=== PATIENT | female | born 1940 | race African-American/Black ===

== ENCOUNTER 2017-06-02 15:24 | Observation (INO) | payer MEDICAID, MEDICARE ==
[~2017-06-02] VITALS: Ht 162.6 cm; Wt 46.7 kg
[~2017-06-02 15:24] MED LIST: NKM; ZOFRAN ODT8 MG ORAL
[2017-06-02 15:41] VITALS: BP 147/75
[2017-06-02] MEDS ORDERED: Sodium Chloride 500ML 500 ML IV ONE (16:04)
[2017-06-02 17:17] LABS: BASOPHILS % (AUTO) 0.5 % (0.0-2.0); EOSINOPHILS % (AUTO) 0.2 % (0.0-3.0); LYMPHOCYTES % (AUTO) 12.9 % (20.0-45.0); MEAN CORPUSCULAR HGB CONC 29.8 G/DL (32.0-36.0); MEAN CORPUSCULAR VOLUME 84 FL (80-99); MEAN PLATELET VOLUME 6.8 FL (6.5-10.1); MONOCYTES % (AUTO) 4.4 % (1.0-10.0); PLATELET COUNT 237 K/UL (150-450); RED BLOOD COUNT 4.83 M/UL (4.20-5.40); RED CELL DISTRIBUTION WIDTH 13.2 % (11.6-14.8); WHITE BLOOD COUNT 11.7 K/UL (4.8-10.8)
[2017-06-02 17:19] LABS: APPEARANCE,URINE CLEAR; KETONES,URINE NEGATIVE (NEGATIVE); LEUKOCYTE ESTERASE ,URINE 2+ (NEGATIVE); NITRITE,URINE NEGATIVE (NEGATIVE); PH,URINE 6 (4.5-8.0); PROTEIN,URINE 2+ (NEGATIVE); UROBILINOGEN,URINE 1 MG/DL (0.0-1.0)
[2017-06-02 17:25] LABS: BACTERIA,URINE FEW /HPF; SQUAMOUS EPITHELIAL CELL,UR FEW /LPF (NONE/OCC)
[2017-06-02 17:29] LABS: ANION GAP 10 mmol/L (5-15); CALCIUM 9.7 MG/DL (8.5-10.1); CARBON DIOXIDE 27 MMOL/L (21-32); CHLORIDE 106 MMOL/L (98-107); CREATININE 0.9 MG/DL (0.55-1.30); POTASSIUM 3.7 MMOL/L (3.5-5.1); SODIUM 143 MMOL/L (136-145)
[2017-06-02 17:46] LABS: ALANINE AMINOTRANSFERASE 16 U/L (12-78); ASPARTATE AMINO TRANSFERASE 19 U/L (15-37); CKMB < 0.5 NG/ML (0.0-3.6)
[2017-06-02] MEDS ORDERED: Miralax 17gm pkt ORAL PRN (18:00)
--- NOTE | 2017-06-02 18:04 | History and Physical ---
History of Present Illness General Date patient seen: Jun 02, 2017 Time patient seen: 18:04 Reason for Hospitalization: Syncope Present Illness HPI 77/yo female with pmh of breast cancer s/p resection, chemo and XRT (currently in remission per family) who presents with syncope. Per daughter who witnessed episode, pt was sitting on toilet and attempting to have BM when she passed out. She was constipated and straining somewhat. No chest pain, SOB, dizziness, nausea prior to or after incident. Had subsequently 2 BMs. Mild lower abd discomfort. Had syncopal episode abt 1 year ago somewhat similar w/ unremarkable workup at the time. Pt states had "fainting spells" as a child. Denies recent travel, sick contacts or trauma. In ED, CT head neg for acute abnormality. Pt given IVFs. Allergies: Coded Allergies: PENICILLINS (Verified Allergy, Severe, 06/23/15) AMOXICILLIN (Verified Allergy, Unknown, 05/21/12) Medication History Scheduled No Known Medications* (NKM - No Known Medications*), 0 ., (Reported) Scheduled PRN Ondansetron Odt* (Zofran Odt*), 8 MG ORAL Q6H PRN for Nausea & Vomiting Patient History History Provided By: Patient, Family Member, Medical Record Healthcare decision maker Resuscitation status Advanced Directive on File Past Medical/Surgical History Past Medical/Surgical History: (1) Breast cancer s/p surgerical resection s/p chemo and XRT Social History Social History: (1) Lives with family Review of Systems Constitutional: Reports: weakness Eye: Reports: no symptoms ENT: Reports: no symptoms Respiratory: Reports: no symptoms Cardiovascular: Reports: no symptoms Gastrointestinal: Reports: abdominal pain, constipation Genitourinary: Reports: no symptoms Musculoskeletal: Reports: no symptoms Skin: Reports: no symptoms Psychiatric: Reports: no symptoms Neurological: Reports: syncope Endocrine: Reports: no symptoms Hematologic/Lymphatic: Reports: no symptoms Physical Exam Physical Exam Narrative General: alert, cooperative, no distress, appears stated age Head: normocephalic, without obvious abnormality, atraumatic Eyes: conjunctivae/corneas clear. PERRL, EOM's intact Throat: lips, mucosa, and tongue normal. MMM Neck: supple, symmetrical, trachea midline, and no JVD Lungs: clear to auscultation bilaterally Heart: regular rate and rhythm, S1, S2 normal, no murmur, click, rub or gallop Abdomen: soft, non-tender, non-distended, bowel sounds normal; no masses or organomegaly Extremities: extremities normal, atraumatic, no cyanosis or edema Pulses: 2+ and symmetric Skin: skin color, texture, turgor normal; no rashes or lesions Neurologic: grossly normal, no focal deficits Last 24 Hour Vital Signs Date Time Temp Pulse Resp B/P (MAP) Pulse Ox O2 Delivery O2 Flow Rate FiO2 06/02/17 15:41 98.8 59 14 147/75 100 Room Air 06/02/17 15:18 98.1 58 20 156/78 98 Room Air Intake and Output 06/02/17 06/03/17 19:00 07:00 Intake Total 0 ml Balance 0 ml Intake Oral 0 ml Laboratory Tests Test 06/02/17 16:40 06/02/17 17:00 White Blood Count 11.7 K/UL (4.8-10.8) H Red Blood Count 4.83 M/UL (4.20-5.40) Hemoglobin 12.1 G/DL (12.0-16.0) Hematocrit 40.5 % (37.0-47.0) Mean Corpuscular Volume 84 FL (80-99) Mean Corpuscular Hemoglobin 25.0 PG (27.0-31.0) L Mean Corpuscular Hemoglobin Concent 29.8 G/DL (32.0-36.0) L Red Cell Distribution Width 13.2 % (11.6-14.8) Platelet Count 237 K/UL (150-450) Mean Platelet Volume 6.8 FL (6.5-10.1) Neutrophils (%) (Auto) 82.0 % (45.0-75.0) H Lymphocytes (%) (Auto) 12.9 % (20.0-45.0) L Monocytes (%) (Auto) 4.4 % (1.0-10.0) Eosinophils (%) (Auto) 0.2 % (0.0-3.0) Basophils (%) (Auto) 0.5 % (0.0-2.0) Sodium Level 143 MMOL/L (136-145) Potassium Level 3.7 MMOL/L (3.5-5.1) Chloride Level 106 MMOL/L (98-107) Carbon Dioxide Level 27 MMOL/L (21-32) Anion Gap 10 mmol/L (5-15) Blood Urea Nitrogen 11 mg/dL (7-18) Creatinine 0.9 MG/DL (0.55-1.30) Estimat Glomerular Filtration Rate mL/min (>60) Glucose Level 99 MG/DL (74-106) Calcium Level 9.7 MG/DL (8.5-10.1) Total Bilirubin 0.9 MG/DL (0.2-1.0) Aspartate Amino Transf (AST/SGOT) 19 U/L (15-37) Alanine Aminotransferase (ALT/SGPT) 16 U/L (12-78) Alkaline Phosphatase 81 U/L (46-116) Total Creatine Kinase 95 U/L (26-308) Creatine Kinase MB < 0.5 NG/ML (0.0-3.6) Creatine Kinase MB Relative Index 0.5 Troponin I 0.008 ng/mL (0.000-0.056) Pro-B-Type Natriuretic Peptide 189 pg/mL (0-125) H Total Protein 8.0 G/DL (6.4-8.2) Albumin 4.0 G/DL (3.4-5.0) Globulin 4.0 g/dL Albumin/Globulin Ratio 1.0 (1.0-2.7) Urine Color Yellow Urine Appearance Clear Urine pH 6 (4.5-8.0) Urine Specific [place] 1.020 (1.005-1.035) Urine Protein 2+ (NEGATIVE) H Urine Glucose (UA) Negative (NEGATIVE) Urine Ketones Negative (NEGATIVE) Urine Occult Blood 4+ (NEGATIVE) H Urine Nitrite Negative (NEGATIVE) Urine Bilirubin Negative (NEGATIVE) Urine Urobilinogen 1 MG/DL (0.0-1.0) H Urine Leukocyte Esterase 2+ (NEGATIVE) H Urine RBC 5-10 /HPF (0 - 2) H Urine WBC 2-4 /HPF (0 - 2) Urine Squamous Epithelial Cells Few /LPF (NONE/OCC) Urine Bacteria Few /HPF (NONE) Height (Feet): 5 Height (Inches): 8.00 Weight (Pounds): 155 Medications Current Medications Medications (Trade) Dose Ordered Sig/Ashlee Route PRN Reason Start Time Stop Time Status Last Admin Dose Admin Acetaminophen (Tylenol) 650 mg Q4H PRN ORAL Mild Pain (Pain Scale 1-3) 06/02/17 18:00 07/02/17 17:59 UNV Dextrose (Dextrose 50%) STAT PRN IV Hypoglycemia 06/02/17 18:00 07/02/17 17:59 UNV Docusate Sodium (Colace) 100 mg EVERY 12 HOURS ORAL 06/02/17 21:00 07/02/17 20:59 UNV Heparin Sodium (Porcine) (Heparin 5000 units/ml) 5,000 units EVERY 12 HOURS SUBQ 06/02/17 21:00 07/02/17 20:59 UNV Ondansetron HCl (Zofran) 4 mg Q6H PRN IVP Nausea & Vomiting 06/02/17 18:00 07/02/17 17:59 UNV Polyethylene Glycol (Miralax) 17 gm DAILYPRN PRN ORAL Constipation 06/02/17 18:00 07/02/17 17:59 UNV Sodium Chloride 1,000 ml @ 75 mls/hr [id number] IV 06/02/17 18:57 07/02/17 18:56 UNV Assessment/Plan Problem List: (1) Syncope ICD Codes: R55 - Syncope and collapse SNOMED: [id number] Qualifiers: Qualified Codes: R55 - Syncope and collapse (2) Breast cancer s/p surgerical resection s/p chemo and XRT Status: stable Assessment/Plan Appears to be vasovagal episode per history Admit to tele CT head neg Trend trop/EKG Check TTE Check Carotid duplex Check orthostatic vitals IVFs Pain control, nausea control, bowel regimen PT eval DVT Prophylaxis: SCD, HSQ Code Status: Full Hospital Classification Declaration: Based on this initial evaluation, and depending on the patient's clinical course, I anticipate that this patient will require hospitalization for 1-2 days for syncope eval and close respiratory/ hemodynamic monitoring. Disposition: Once the patient is stable to leave the hospital, I anticipate the patient will likely be discharged to the following environment: home with HH vs SNF I spent 70 minutes on this patient's case, and 38 minutes were dedicated to counseling and/or care coordination. Discussed with patient/family, nursing staff, SW/CM, ER physician regarding clinical status, treatment course, and disposition planning. Time of note may not reflect time of encounter. Faheem Flor M.D. Jun 02, 2017 18:04
[2017-06-02 18:06] VITALS: BP 161/79
--- NOTE | 2017-06-02 18:32 | Emergency Room Report ---
History of Present Illness General Chief Complaint: Syncope Source: Patient, Family Member, Medical Record Present Illness HPI 77-year-old female presents ED status post syncopal episode. Patient says she syncopized while on the toilet today. Upon arrival patient states she does not remember what happened. States she feels confused. Denies any headache. Denies any blurry vision nausea or vomiting. Denies chest pain shortness of breath. No other aggravating relieving factors. Denies any other associated symptoms Allergies: Coded Allergies: PENICILLINS (Verified Allergy, Severe, 06/23/15) AMOXICILLIN (Verified Allergy, Unknown, 05/21/12) Patient History Past Medical History: HTN, other - breast cancer Past Surgical History: other - double mastectomy Pertinent Family History: none Social History: Denies: smoking, alcohol use, drug use Now: No Immunizations: UTD Reviewed Nursing Documentation: PMH: Agreed, PSxH: Agreed Nursing Documentation-PMH Past Medical History: No History, Except For Hx Cardiac Problems: Yes Hx Hypertension: Yes Hx Cancer: Yes - DOUBLE mastectomy Hx Neurological Problems: No Review of Systems All Other Systems: negative except mentioned in HPI Physical Exam Vital Signs Date Time Temp Pulse Resp B/P (MAP) Pulse Ox O2 Delivery O2 Flow Rate FiO2 06/02/17 15:18 98.1 58 20 156/78 98 Room Air Sp02 EP Interpretation: reviewed, normal General Appearance: no apparent distress, alert, GCS 15, non-toxic Head: normocephalic, atraumatic Eyes: bilateral eye normal inspection, bilateral eye PERRL ENT: hearing grossly normal, normal pharynx, no angioedema, normal voice Neck: full range of motion, supple/symm/no masses Respiratory: chest non-tender, lungs clear, normal breath sounds, speaking full sentences Cardiovascular #1: regular rate, rhythm, no edema Cardiovascular #2: 2+ carotid (R), 2+ carotid (L), 2+ radial (R), 2+ radial (L) , 2+ dorsalis pedis (R), 2+ dorsalis pedis (L) Gastrointestinal: normal bowel sounds, non tender, soft, non-distended, no guarding, no rebound Rectal: deferred Genitourinary: normal inspection, no CVA tenderness Musculoskeletal: back normal, gait/station normal, normal range of motion, non- tender Neurologic: alert, responsive, motor strength/tone normal, sensory intact, speech normal, other - oriented x2 Psychiatric: judgement/insight normal, mood/affect normal, no suicidal/ homicidal ideation Reflexes: 3+ bicep (R), 3+ bicep (L), 3+ tricep (R), 3+ tricep (L), 3+ knee (R) , 3+ knee (L) Skin: normal color, no rash, warm/dry, well hydrated Lymphatic: no adenopathy Medical Decision Making Diagnostic Impression: Primary Impression: Syncope Qualified Codes: R55 - Syncope and collapse ER Course Hospital Course 77year-old F presents ED s/p syncopal episode. Differential diagnoses include: RI/unstable angina, arrythmia, dehydration, CVA/ TIA Clinical course Patient placed on stretcher. on stock digger. After initial history and physical I ordered labs, EKG, chest x-ray, IVFs, CT Brain labs reviewed- no leukocytosis, hemoglobin/hematocrit ok, electrolytes okay, troponins negative EKG- NSR, no acute ischemic changes interpreted by me Chest x-ray- no acute process CT brain-unremarkable Case discussed with Dr. Farmer and he agreed to accept the patient to his service for further care and support I. I feel this is a highly complex case requiring extensive working including EKG/Rhythm strip, Xray/CT/US, Blood/urine lab work, repeat exams while in ED, and administration of strong opiates/narcotics for pain control, admission to hospital or close patient follow up. Diagnosis - syncope admitted to telemetry in serious condition Labs Test 06/02/17 16:40 06/02/17 17:00 White Blood Count 11.7 K/UL (4.8-10.8) Red Blood Count 4.83 M/UL (4.20-5.40) Hemoglobin 12.1 G/DL (12.0-16.0) Hematocrit 40.5 % (37.0-47.0) Mean Corpuscular Volume 84 FL (80-99) Mean Corpuscular Hemoglobin 25.0 PG (27.0-31.0) Mean Corpuscular Hemoglobin Concent 29.8 G/DL (32.0-36.0) Red Cell Distribution Width 13.2 % (11.6-14.8) Platelet Count 237 K/UL (150-450) Mean Platelet Volume 6.8 FL (6.5-10.1) Neutrophils (%) (Auto) 82.0 % (45.0-75.0) Lymphocytes (%) (Auto) 12.9 % (20.0-45.0) Monocytes (%) (Auto) 4.4 % (1.0-10.0) Eosinophils (%) (Auto) 0.2 % (0.0-3.0) Basophils (%) (Auto) 0.5 % (0.0-2.0) Sodium Level 143 MMOL/L (136-145) Potassium Level 3.7 MMOL/L (3.5-5.1) Chloride Level 106 MMOL/L (98-107) Carbon Dioxide Level 27 MMOL/L (21-32) Anion Gap 10 mmol/L (5-15) Blood Urea Nitrogen 11 mg/dL (7-18) Creatinine 0.9 MG/DL (0.55-1.30) Estimat Glomerular Filtration Rate mL/min (>60) Glucose Level 99 MG/DL (74-106) Calcium Level 9.7 MG/DL (8.5-10.1) Total Bilirubin 0.9 MG/DL (0.2-1.0) Aspartate Amino Transf (AST/SGOT) 19 U/L (15-37) Alanine Aminotransferase (ALT/SGPT) 16 U/L (12-78) Alkaline Phosphatase 81 U/L (46-116) Total Creatine Kinase 95 U/L (26-308) Creatine Kinase MB < 0.5 NG/ML (0.0-3.6) Creatine Kinase MB Relative Index 0.5 Troponin I 0.008 ng/mL (0.000-0.056) Pro-B-Type Natriuretic Peptide 189 pg/mL (0-125) Total Protein 8.0 G/DL (6.4-8.2) Albumin 4.0 G/DL (3.4-5.0) Globulin 4.0 g/dL Albumin/Globulin Ratio 1.0 (1.0-2.7) Urine Color Yellow Urine Appearance Clear Urine pH 6 (4.5-8.0) Urine Specific [place] 1.020 (1.005-1.035) Urine Protein 2+ (NEGATIVE) Urine Glucose (UA) Negative (NEGATIVE) Urine Ketones Negative (NEGATIVE) Urine Occult Blood 4+ (NEGATIVE) Urine Nitrite Negative (NEGATIVE) Urine Bilirubin Negative (NEGATIVE) Urine Urobilinogen 1 MG/DL (0.0-1.0) Urine Leukocyte Esterase 2+ (NEGATIVE) Urine RBC 5-10 /HPF (0 - 2) Urine WBC 2-4 /HPF (0 - 2) Urine Squamous Epithelial Cells Few /LPF (NONE/OCC) Urine Bacteria Few /HPF (NONE) EKG Diagnostic Results Rate: normal Rhythm: NSR ST Segments: no acute changes ASA given to the pt in ED: No Rhythm Strip Diag. Results EP Interpretation: yes Rhythm: NSR, no PVC's, no ectopy Chest X-Ray Diagnostic Results Chest X-Ray Diagnostic Results : Chest X-Ray Ordered: Yes # of Views/Limited/Complete: 1 View Indication: Other - syncope EP Interpretation: Yes Interpretation: no consolidation, no effusion, no pneumothorax, no acute cardiopulmonary disease Impression: No acute disease Electronically Signed by: Electronically signed by Elmer Gracia MD CT/MRI/US Diagnostic Results CT/MRI/US Diagnostic Results : Imaging Test Ordered: CT head Impression no acute process Last Vital Signs Date Time Temp Pulse Resp B/P (MAP) Pulse Ox O2 Delivery O2 Flow Rate FiO2 06/02/17 18:06 98.8 59 19 161/79 100 Room Air Status: improved Disposition: ADMITTED INPATIENT Condition: Serious Referrals: NOT CHOSEN IPA/,REFERRING (PCP) ELMER GRACIA M.D. Jun 02, 2017 18:32
[2017-06-02 19:30] VITALS: BP_SYST 155; BP_SYST 165; BP_SYST 169; BP_SYST 170; BP_DIAS 78; BP_DIAS 88; BP_DIAS 89
[2017-06-02 19:50] VITALS: BP 160/80
[2017-06-02 20:00] VITALS: BP 160/80
[2017-06-02] MEDS: Docusate 100mg cap ORAL SCH (21:08)
[2017-06-02] MEDS: Heparin 5000 units/ml inj SUBQ SCH (21:10)
[2017-06-03 00:10] VITALS: BP 151/65
[2017-06-03 04:00] VITALS: BP 132/72
--- NOTE | 2017-06-03 05:02 | Diagnostic Imaging Report ---
Indication: Shortness of breath Technique: One view of the chest Comparison: 06/23/2015 Findings: The lungs demonstrates clear. Heart size is normal. The aorta is tortuous and calcified. No significant change Impression: No acute process
--- NOTE | 2017-06-03 05:02 | Diagnostic Imaging Report ---
Indications: Syncope Technique: Spiral acquisitions obtained through the brain. Angled axial and coronal 5 x 5 mm slices were reconstructed. Total dose length product 1274 mGycm. CTDI vol(s) 70 mGy. Dose reduction achieved using automated exposure control Comparison: 12/13/2007 Findings: Again demonstrated is age-related enlargement of the ventricles and extra-axial CSF spaces. No acute intracranial hemorrhage, edema, mass effect, or midline shift. Normal delarosa-white differentiation. Intact calvarium. Visualized orbits and sinuses are unremarkable. No significant interval change Impression: Age-related changes. Negative for acute intracranial bleed or mass effect The CT scanner at [facility] is accredited by the [employer] and the scans are performed using protocols designed to limit radiation exposure to as low as reasonably achievable to attain images of sufficient resolution adequate for diagnostic evaluation.
[2017-06-03 07:34] LABS: BASOPHILS % (AUTO) 0.8 % (0.0-2.0); EOSINOPHILS % (AUTO) 1.1 % (0.0-3.0); LYMPHOCYTES % (AUTO) 33.3 % (20.0-45.0); MEAN CORPUSCULAR HEMOGLOBIN 26.5 PG (27.0-31.0); MEAN CORPUSCULAR HGB CONC 32.2 G/DL (32.0-36.0); MEAN CORPUSCULAR VOLUME 83 FL (80-99); MEAN PLATELET VOLUME 7.1 FL (6.5-10.1); NEUTROPHILS % (AUTO) 58.8 % (45.0-75.0); PLATELET COUNT 209 K/UL (150-450); RED BLOOD COUNT 4.06 M/UL (4.20-5.40); RED CELL DISTRIBUTION WIDTH 13.5 % (11.6-14.8); WHITE BLOOD COUNT 6.7 K/UL (4.8-10.8)
[2017-06-03 07:46] LABS: ANION GAP 6 mmol/L (5-15); CARBON DIOXIDE 28 MMOL/L (21-32); CHLORIDE 107 MMOL/L (98-107); POTASSIUM 3.4 MMOL/L (3.5-5.1); SODIUM 141 MMOL/L (136-145); THYROID STIMULATING HORMONE 3.095 uiU/mL (0.358-3.740)
[2017-06-03 08:36] VITALS: BP 138/78
[2017-06-03] MEDS: Heparin 5000 units/ml inj SUBQ SCH (09:00)
[2017-06-03] MEDS: Docusate 100mg cap ORAL SCH (10:09)
[2017-06-03 12:13] VITALS: BP 145/73
--- NOTE | 2017-06-03 13:09 | Cardiology Report ---
APPROVED REPORT EXAM: Two-dimensional and M-mode echocardiogram with Doppler and color Doppler. INDICATION Syncope M-Mode DIMENSIONS IVSd1.1 (0.7-1.1cm)Left Atrium (MM)2.7 (1.6-4.0cm) LVDd3.7 (3.5-5.6cm)Aortic Root3.0 (2.0-3.7cm) PWd1.1 (0.7-1.1cm)Aortic Cusp Exc.1.8 (1.5-2.0cm) LVDs2.1 (2.5-4.0cm) PWs1.8 cm Normal left ventricular chamber size, systolic function and wall motion. Left ventricular ejection fraction estimated to be 60 %. Borderline mild left ventricular hypertrophy. No evidence of pericardial effusion. All other cardiac chamber sizes are within normal limits. Focal aortic valve sclerosis with adequate cusp excursion. Thickened mitral valve leaflets with normal excursion. Mitral annulus and aortic root calcification. Pulmonic valve not well visualized. Normal tricuspid valve structure. IVC at normal size with physiologic collapse. A color flow and spectral Doppler study was performed and revealed: Mild aortic regurgitation. Mild to moderate mitral regurgitation. Mitral diastolic velocities suggest reduced left ventricular relaxation c/w mild LV diastolic dysfunction (Grade I). Mild tricuspid regurgitation. Tricuspid systolic velocities suggests peak right ventricular systolic pressure of 38 mmHg, consistent with mild pulmonary hypertension. Pulmonic regurgitation present.
--- NOTE | 2017-06-03 15:23 | Discharge Instructions ---
Discharge Instructions Discharge Instructions Follow up with: PCP in 1 week Call MD/Return to Hospital if: fevers, LOC, chest pain, SOB Services at Discharge: home health services Diet: regular Resume Normal Activity?: Yes Activity: resume normal activities For Congestive Heart Failure Reminder Report to your physician any weight gain of 5 pounds or more in one week. Faheem Flor M.D. Jun 03, 2017 15:23
[2017-06-03 16:00] VITALS: BP 141/70
[2017-06-03] MEDS ORDERED: 1/2 NS 1000ml IV ONE (18:59)
--- NOTE | 2017-06-04 08:09 | Discharge Summary ---
Discharge Summary Hospital Course Date of Admission Jun 02, 2017 at 17:14 Date of Discharge Jun 03, 2017 at 19:00 Admitting Diagnosis syncope Reason for Hospitalization: syncope HPI 77/yo female with pmh of breast cancer s/p resection, chemo and XRT (currently in remission per family) who presents with syncope. Per daughter who witnessed episode, pt was sitting on toilet and attempting to have BM when she passed out. She was constipated and straining somewhat. No chest pain, SOB, dizziness, nausea prior to or after incident. Had subsequently 2 BMs. Mild lower abd discomfort. Had syncopal episode abt 1 year ago somewhat similar w/ unremarkable workup at the time. Pt states had "fainting spells" as a child. Denies recent travel, sick contacts or trauma. In ED, CT head neg for acute abnormality. Pt given IVFs. Consultations None Hospital Course Pt was admitted to tele. She was ruled out for ACS. The next day pt was improved and orthostatics negative. Syncope likely vasovagal episode in setting of having a BM. Prior to d/c pt was HD stable, tolerating PO and ambulating w/o assistance. Discharge physical exam General: alert, cooperative, no distress, appears stated age Head: normocephalic, without obvious abnormality, atraumatic Eyes: conjunctivae/corneas clear. PERRL, EOM's intact Throat: lips, mucosa, and tongue normal. MMM Neck: supple, symmetrical, trachea midline, and no JVD Lungs: clear to auscultation bilaterally Heart: regular rate and rhythm, S1, S2 normal, no murmur, click, rub or gallop Abdomen: soft, non-tender, non-distended, bowel sounds normal; no masses or organomegaly Extremities: extremities normal, atraumatic, no cyanosis or edema Pulses: 2+ and symmetric Skin: skin color, texture, turgor normal; no rashes or lesions Neurologic: grossly normal, no focal deficits Discharge Medications Continued Medications: No Known Medications* (NKM - No Known Medications*) . 0 . Ondansetron Odt* (Zofran Odt*) 8 Mg Tab.rapdis 8 MG ORAL Q6H PRN for Nausea & Vomiting, #30 TAB Discharge Discharge Disposition Patient was discharged to home with home health Discharge Diagnoses: (1) Vasovagal episode (2) Syncope (3) Breast cancer s/p surgerical resection s/p chemo and XRT Discharge Instructions Discharge Instructions Follow up with: PCP in 1 week Call MD/Return to Hospital if: fevers, LOC, chest pain, SOB Services Upon Discharge: home health services Activity: resume normal activities Faheem Flor M.D. Jun 04, 2017 08:09
--- NOTE | 2017-06-14 19:22 | Cardiology Report ---
APPROVED REPORT EKG Measurement Heart [id number] Normal sinus rhythm Normal ECG
--- NOTE | 2017-06-17 00:16 | Diagnostic Imaging Report ---
APPROVED REPORT CPT Code: 26515 Vascular Symptoms Syncope Doppler Spectral Velocity Analysis RightLeft pJEP203/30 cm/sdICA94/24 cm/s mICA97/24 cm/smICA92/24 cm/s pICA72/16 cm/spICA72/14 cm/s ECA91/10 cm/sECA81/12 cm/s dCCA66/15 cm/sdCCA77/18 cm/s mCCA66/15 cm/smCCA93/19 cm/s pCCA73/14 cm/spCCA85/19 cm/s Vert.56/13 cm/sVert.28/9 cm/s Right ICA/CCA ratio1.4Left ICA/CCA ratio1.0 RIGHT SIDE: CCA/BULB- Imaging reveals irregular, minimal plaque in the carotid bulb and artery. There is a minimal stenosis at the proximal external carotid artery. The Doppler spectral flow analysis indicates the degree of stenosis is (20% - 30%). VERTEBRAL - The vertebral artery is patent, without evidence of stenosis or steal. LEFT SIDE: CCA/BULB- Imaging reveals irregular, minimal plaque in the carotid bulb and external carotid arteries. VERTEBRAL - The vertebral artery is patent, without evidence of stenosis or steal.
--- NOTE | 2017-06-18 08:13 | Discharge Summary ---
Discharge Summary Hospital Course Date of Admission Jun 02, 2017 at 17:14 Date of Discharge Jun 03, 2017 at 19:00 Admitting Diagnosis syncope HPI Neela Duarte is a 77 year old female who was admitted on Jun 02, 2017 at 17:14 for Syncope Hospital Course 77/yo female with pmh of breast cancer s/p resection, chemo and XRT (currently in remission per family) who presents with syncope. Per daughter who witnessed episode, pt was sitting on toilet and attempting to have BM when she passed out. She was constipated and straining somewhat. No chest pain, SOB, dizziness, nausea prior to or after incident. Had subsequently 2 BMs. Mild lower abd discomfort. Had syncopal episode about 1 year ago somewhat similar w/ unremarkable workup at the time. Pt states had "fainting spells" as a child. Denies recent travel, sick contacts or trauma. In ED, CT head neg for acute abnormality. Pt given IVFs.. She was admitted to telemetry for cardiac evaluation. carotid ultrasound showed: RIGHT SIDE: CCA/BULB- Imaging reveals irregular, minimal plaque in the carotid bulb and artery. There is a minimal stenosis at the proximal external carotid artery. The Doppler spectral flow analysis indicates the degree of stenosis is (20% - 30%). VERTEBRAL - The vertebral artery is patent, without evidence of stenosis or steal. LEFT SIDE: CCA/BULB- Imaging reveals irregular, minimal plaque in the carotid bulb and external carotid arteries. VERTEBRAL - The vertebral artery is patent, without evidence of stenosis or steal. Echocardiogram showed EF 60% with mild pulmonary hypertension and mild aortic regurgitation. She was eventually discharged home with . Assessment/Plan Problem List: (1) Syncope, appears to be vasovagal ICD Codes: R55 - Syncope and collapse SNOMED: [id number] Qualifiers: Qualified Codes: R55 - Syncope and collapse (2) Breast cancer s/p surgerical resection s/p chemo and XRT Status: stable --I have been assigned to complete a DC summary on this account, I was not involved with the patient's management--Raman Cullen NP Discharge Discharge Disposition Patient was discharged to home with home health Discharge Diagnoses: Discharge Instructions Discharge Instructions Follow up with: PCP in 1 week Call MD/Return to Hospital if: fevers, LOC, chest pain, SOB Services Upon Discharge: home health services Activity: resume normal activities Maureen Cullen NP Jun 18, 2017 08:13
== END 2017-06-03 19:00 | disposition home or self-care (01) ==
LOC: EDBD 15:24 → EMR 17:04 → 2E 17:14 → INTOOBSV 17:14 → EDBEDREQ 17:58
DX: R55 Syncope and collapse (principal); K59.00 Constipation, unspecified; I07.1 Rheumatic tricuspid insufficiency; I35.0 Nonrheumatic aortic (valve) stenosis; Z88.0 Allergy status to penicillin; Z85.3 Personal history of malignant neoplasm of breast
CPT/HCPCS: 36415 ×2; 70450; 71010; 80048; 80053; 81003; 82550; 82553; 83735; 83880; 84443; 84484 ×2; 85025 ×2; 93005; 93306; 93880; 96360 ×2; 96361; 96372; 97110; 97116; 97161; 97530; 99285; G0378 ×2; G8978; G8979; J1644 ×2; J8499